=== PATIENT | male | born 1975 | race African-American/Black ===

== ENCOUNTER 2022-01-11 20:39 | Inpatient (IN) ==
[2022-01-11] MEDS ORDERED: DIPH/TET/ACEL PERT BOOSTER VACCINE 0.5 ML VIAL IM ONE (20:54)
[2022-01-11] MEDS ORDERED: SODIUM CHLORIDE 0.9% 1,000 ML IV STA (20:54)
[2022-01-11] MEDS ORDERED: ONDANSETRON 4 MG/2 ML VIAL IV ONE (20:54)
[2022-01-11] MEDS ORDERED: MORPHINE 2 MG/1 ML SYRINGE IV ONE (20:54)
[2022-01-11 21:05] LABS: Basophils # 0.1 10*3/uL (0.0-0.2); Basophils % 0.8 % (0.0-0.8); Eosinophils # 0.2 10*3/uL (0.0-0.87); Eosinophils % 2.8 % (0.00-10.9); Hematocrit 44.6 VOL% (42.0-52.0); Hemoglobin 14.7 GM/DL (14.0-18.0); Immature Granulocytes % 1.1 %; Immature Granulocytes Absolute 0.07 #; Lymphocytes # 2.9 10*3/uL (1.4-4.0); Mean Corpuscular Volume 82.3 FL (87-102); Mean Platelet Volume 9.3 FL (9.6-12.0); Monocytes # 0.6 10*3/uL (0.11-0.8); Monocytes % 9.3 % (1.7-12.7); Platelet Count 295 T/CUMM (130-400); Red Blood Count 5.42 MC/CUMM (3.8-5.5); Red Cell Distribution Width 14.6 % (9.3-17.3); White Blood Count 6.4 T/CUMM (4-12)
[2022-01-11 21:25] LABS: Alanine Aminotransferase 59 U/L (16-61); Albumin 3.5 G/DL (3.4-5.0); Alkaline Phosphatase 70 U/L (45-117); Aspartate Amino Transferase 33 U/L (0-37); Bilirubin,Total < 0.39 MG/DL (0.20-1.00); Blood Urea Nitrogen 11 MG/DL (7-18); Calcium 9.3 MG/DL (8.5-10.1); Carbon Dioxide 27 MMOL/L (21-32); Chloride 105 MMOL/L (98-107); Glucose 146 MG/DL (74-106); Osmolality,Calculated 276.7 MOS/KG (273-304); Potassium 3.8 MMOL/L (3.5-5.1); Sodium 138 MMOL/L (136-145)
[2022-01-11] MEDS ORDERED: HYDROmorphone 1 MG/1 ML SYRINGE IV STA (21:28)
[2022-01-11] MEDS ORDERED: PROMETHAZINE 25 MG/1 ML VIAL IM PRN (21:37)
[2022-01-11] MEDS ORDERED: MORPHINE 2 MG/1 ML SYRINGE IV PRN (21:37)
[2022-01-11] MEDS ORDERED: ONDANSETRON 4 MG/2 ML VIAL IV PRN (21:37)
[2022-01-11] MEDS ORDERED: MAGNESIUM HYDROXIDE SUSP 30 ML UDCUP PO PRN (21:37)
[2022-01-11 22:11] LABS: PT Patient Result 10.8 SECS (10.5-12.0)
[2022-01-12] MEDS: HYDROmorphone 1 MG/1 ML SYRINGE IV PRN ×7 (00:11→16:48)
[2022-01-12] MEDS: SODIUM CHLORIDE 0.9% 1,000 ML IV SCH ×2 (00:11→22:33)
[2022-01-12] MEDS: PANTOPRAZOLE 40 MG TABLET PO SCH (08:49)
[2022-01-12] MEDS ORDERED: fentaNYL 100 MCG/2 ML VIAL ONE ×2 (08:56→10:34)
[2022-01-12] MEDS ORDERED: MIDAZOLAM 2 MG/2 ML VIAL ONE (08:56)
[2022-01-12] MEDS ORDERED: CLINDAMYCIN INJ 900 MG/50 ML PREMIX IV ONE (09:00)
[2022-01-12] MEDS ORDERED: SEVOFLURANE 1 UNIT/15 MINUTE INH ONE ×2 (09:11→11:17)
[2022-01-12] MEDS ORDERED: ONDANSETRON 4 MG/2 ML VIAL ONE (09:11)
[2022-01-12] MEDS ORDERED: DEXAMETHASONE 4 MG/1 ML VIAL ONE (09:11)
[2022-01-12] MEDS ORDERED: LIDOCAINE 2% 5 ML VIAL ONE (09:11)
[2022-01-12] MEDS ORDERED: propofoL 200 MG/20 ML VIAL IV ONE (09:11)
[2022-01-12] MEDS ORDERED: ROCURONIUM 50 MG/5 ML VIAL IV ONE (09:11)
[2022-01-12] MEDS ORDERED: SUCCINYLCHOLINE 200 MG/10 ML VIAL ONE (09:11)
[2022-01-12] MEDS ORDERED: PHENYLEPHRINE 1 MG/10 ML SYRINGE IV ONE (10:45)
[2022-01-12] MEDS ORDERED: diphenhydrAMINE CAP 25 MG CAPSULE PO PRN (11:30)
[2022-01-12] MEDS ORDERED: ACETAMINOPHEN 325 MG TABLET PO PRN (11:30)
[2022-01-12] MEDS ORDERED: HYDROmorphone 1 MG/1 ML SYRINGE IV PRN (11:34)
[2022-01-12] MEDS ORDERED: ONDANSETRON 4 MG/2 ML VIAL IV PRN (11:50)
[2022-01-12] MEDS ORDERED: MEPERIDINE 25 MG/1 ML VIAL IV PRN (12:11)
[2022-01-12] MEDS ORDERED: MEPERIDINE 25 MG/1 ML VIAL ONE (12:11)
[2022-01-12] MEDS ORDERED: KETOROLAC 15 MG/1 ML VIAL IV PRN (13:39)
[2022-01-12] MEDS ORDERED: KETOROLAC 30 MG/1 ML VIAL IV ONE (14:00)
[2022-01-12] MEDS: CLINDAMYCIN INJ 900 MG/50 ML PREMIX IV SCH (16:49)
[2022-01-13] MEDS: CLINDAMYCIN INJ 900 MG/50 ML PREMIX IV SCH ×2 (01:02→09:21)
[2022-01-13] MEDS: SODIUM CHLORIDE 0.9% 1,000 ML IV SCH (01:03)
[2022-01-13] MEDS: PANTOPRAZOLE 40 MG TABLET PO SCH (09:21)
[2022-01-13 15:38] VITALS: BP 131/84
== END 2022-01-13 16:25 | disposition home or self-care (01) | DRG 494 ==
LOC: N.ED 20:39 → N.EDINP 21:37 → N.3E 23:22
PROVIDERS: ADMIT Orthopaedic Surgery; ATTEND Orthopaedic Surgery